=== PATIENT | male | born 1965 | race Caucasian/White ===

== ENCOUNTER 2017-10-13 06:26 | Emergency (ER) | payer MEDICAID ==
[2017-10-13 06:33] VITALS: TEMP 98.2
--- NOTE | 2017-10-13 06:37 | CPEKG ---
Heart Rate: 57 RR Interval: 1053 P-R Interval: 152 QRSD Interval: 90 QT Interval: 444 QTC Interval: 433 P Pep: 49 QRS Pep: 58 T Wave Pep: 65 EKG Severity - NORMAL ECG - EKG Impression: SINUS RHYTHM Electronically Signed By: Biju Peña 13-Oct-2017 08:16:24
[2017-10-13 07:23] VITALS: RESP 18; O2SAT 96
[2017-10-13] MEDS ORDERED: NS 1,000 ML IV ONE ×2 (07:25)
--- NOTE | 2017-10-13 07:27 | EDPHY ---
H & P Stated Complaint: "anxiety attack" Time Seen by Provider: 10/13/17 07:17 HPI/ROS: CHIEF COMPLAINT: Anxious HISTORY OF PRESENT ILLNESS: The patient presents the ED with complaints of anxious and subjective dehydration. The patient is currently homeless and is traveling in a [employer] by his report. He ran out of gas in [place]. He was brought to the emergency department by ranger is secondary to his complaints of dehydration. The patient states that he has problems drinking water. The patient has a history of anxiety and palpitations. The patient takes no prescription medications. The patient denies any fever, cough or congestion. The patient denies abdominal pain, vomiting or diarrhea. REVIEW OF SYSTEMS: A comprehensive 10 point review of systems is otherwise negative aside from elements mentioned in the history of present illness. Source: Patient Exam Limitations: No limitations - Personal History Current Tetanus/Diphtheria Vaccine: Unsure Current Tetanus Diphtheria and Acellular Pertussis (TDAP): Unsure - Medical/Surgical History Hx Asthma: Yes Hx Chronic Respiratory Disease: No Hx Diabetes: No Hx Cardiac Disease: No Hx Renal Disease: No Hx Cirrhosis: No Hx Alcoholism: No Hx HIV/AIDS: No Hx Splenectomy or Spleen Trauma: No Other PMH: asthma, chronic pain anxiety - Social History Smoking Status: Current every day smoker - Physical Exam Exam: General Appearance: Anxious, no acute distress Eyes: Pupils equal and round no pallor or injection ENT, Mouth: Mucous membranes moist Respiratory: There are no retractions, lungs are clear to auscultation Cardiovascular: Regular rate and rhythm Gastrointestinal: Abdomen is soft and nontender, no masses, bowel sounds normal Neurological: A&O, normal motor function, normal sensory exam, normal cranial nerves Skin: Warm and dry, no rashes Musculoskeletal: Neck is supple nontender Extremities: symmetrical, full range of motion Constitutional: Initial Vital Signs Temperature (C) 36.8 C 10/13/17 06:29 Heart Rate 60 10/13/17 06:29 Respiratory Rate 16 10/13/17 06:29 Blood Pressure 140/99 H 10/13/17 06:29 O2 Sat (%) 97 10/13/17 06:29 O2 Delivery Mode Room Air Allergies/Adverse Reactions: Penicillins Allergy (Verified 10/13/17 06:33) Sulfa (Sulfonamide Antibiotics) Allergy (Verified 10/13/17 06:33) Medical Decision Making ED Course/Re-evaluation: The patient presents to the ED with subjective dehydration. His vital signs are stable. He has no dry mouth he is well-appearing. The patient did have an IV established and received 2 L of normal saline. His serum chemistries were checked and found to be within normal limits. At this point time I see no acute medical condition requiring further workup. The patient will be discharged from the emergency department. Differential Diagnosis: Differential diagnosis considered includes anxiety, dehydration, metabolic abnormality - Data Points Laboratory Results: Laboratory Results 10/13/17 06:30 10/13/17 06:30 Sodium 140 mEq/L mEq/L (135-145) Potassium 3.8 mEq/L mEq/L (3.5-5.2) Chloride 103 mEq/L mEq/L (97-110) Carbon Dioxide 25 mEq/l mEq/l (22-31) Anion Gap 12 mEq/L mEq/L (8-16) BUN 18 mg/dL mg/dL (7-23) Creatinine 0.8 mg/dL mg/dL (0.7-1.3) Estimated GFR > 60 Glucose 127 mg/dL H mg/dL (70-100) Calcium 9.4 mg/dL mg/dL (8.5-10.4) Departure - Departure Disposition: Home, Routine, Self-Care Clinical Impression: Anxiety Condition: Good Instructions: Anxiety (ED) Additional Instructions: 1. Please follow-up with your primary care provider in [facility]. 2. Your laboratory testing demonstrates normal electrolytes without evidence of dehydration. 3. You have been given the contact number for [facility] if you stay in [place] in need to establish primary care. Referrals: [facility],. [Clinic] - As per Instructions
[2017-10-13 09:06] VITALS: BP 152/82; PULSE 70
== END 2017-10-13 09:05 | disposition home or self-care (01) ==
DX: F41.9 Anxiety disorder, unspecified (principal); J45.909 Unspecified asthma, uncomplicated; E86.9 Volume depletion, unspecified; F17.200 Nicotine dependence, unspecified, uncomplicated